=== PATIENT | male | born 1965 | race Caucasian/White ===

== ENCOUNTER → 2016-07-02 | Outpatient (CLI) | payer OTHER, MEDICAID | LOC: BMCIMAGING 11:57 | PROVIDERS: ATTEND Family Medicine | DX: M25.561 Pain in right knee (principal) ==

== ENCOUNTER 2016-11-17 12:11 | Day surgery (SDC) | payer OTHER, MEDICAID ==
[2016-11-17] MEDS ORDERED: LIDOCAINE 1% 2 ML INJ ID PRN (13:03)
--- NOTE | 2016-11-17 13:10 | PDPROPOC ---
Sedation Plan of Care Sedation Plan of Care: vital signs stable, mental status noted, patient educated of risks, benefits, alternatives, patient can tolerate sedation ASA Classification: ASA 2 Mallampati Score: Class 2 332 Rule: 332
[2016-11-17] MEDS ORDERED: NS 500 ML IV SCH (13:30)
[2016-11-17] MEDS ORDERED: MIDAZOLAM 2 MG/2 ML VIAL ONE ×2 (13:50→13:51)
[2016-11-17] MEDS ORDERED: fentaNYL 100 MCG/2 ML INJ ONE (13:50)
--- NOTE | 2016-11-17 14:14 | POSTOPPROG ---
Post Op Note Date of Operation: 11/17/16 Surgeon: Devin Canchola Anesthesia: IV Sedation Pre-op Diagnosis: famly h/o polyps Post-op Diagnosis: same Indication: same Procedure: colonoscopy Findings: normal Inf/Abcess present in the surg proc area at time of surgery?: No Complications: none
[2016-11-17 14:51] VITALS: O2SAT 94
[2016-11-17 14:53] VITALS: BP 127/79; PULSE 76; RESP 16; TEMP 97.7
--- NOTE | 2016-11-17 17:15 | GPN ---
[f rep st] PROCEDURE NOTE INDICATION: The patient is a 51-year-old male with a family history of colon polyps. Presents for colon cancer screening. PROCEDURE: After proper consent was obtained, patient was placed in left lateral decubitus position. Received 4 mg of intravenous Versed, 100 mcg of intravenous fentanyl. Video colonoscope was introduced through the anus and rectum up the left colon, across the transverse colon, then the right colon and the cecum. FINDINGS: 1. Normal colonoscopic exam. No polyps, tumors or lesions noted. 2. Ileocecal valve was identified and photographed. At this point, instrument was removed. Patient tolerated the procedure well. Was returned to the recovery room in stable condition. RECOMMENDATIONS: Patient should stay on a 5-year protocol for colon cancer screening given his family history. I will put his name in my reminder file. /[id number]/MODL MTDD
== END 2016-11-17 14:57 | disposition home or self-care (01) ==
LOC: FSGY 12:11
PROVIDERS: ATTEND Internal Medicine Gastroenterology
PROC: 0DJD8ZZ Inspection of Lower Intestinal Tract, Via Natural or Artificial Opening Endoscopic (ICD-10-PCS; principal; 2016-11-17 13:00)
DX: Z12.11 Encounter for screening for malignant neoplasm of colon (principal); Z83.71 Family history of colonic polyps; E78.5 Hyperlipidemia, unspecified
CPT/HCPCS: J2250; J3010